=== PATIENT | female | born 1990 | race Caucasian/White ===

== ENCOUNTER 2018-08-21 06:46 | Outpatient (CLI) | payer BC ==
--- NOTE | 2018-08-21 08:51 | ULT ---
RIGHT UPPER QUADRANT UTLRASOUND: DATE: 08/21/2018. PROVIDED CLINICAL HISTORY: Pancreatitis. FINDINGS: The visualized IVC and pancreas appear normal. The liver demonstrates no evidence for mass or intrah epatic biliary ductal dilatation. The common duct is not dilated. Gallbladder demonstrates no stone s, wall thickening, or pericholecystic fluid. The right kidney demonstrates no hydronephrosis or mas s. IMPRESSION: Unremarkable right upper quadrant ultrasound. POS: [facility]
== END 2018-08-21 06:47 | disposition home or self-care (01) ==
LOC: BICULT 06:46
PROVIDERS: ATTEND Student in an Organized Health Care Education/Training Program
DX: K85.90 Acute pancreatitis without necrosis or infection, unspecified (principal)
CPT/HCPCS: 76705